=== PATIENT | female | born 2000 | race Caucasian/White ===

== ENCOUNTER 2024-02-29 01:30 | Emergency (ER) | payer SELFPAY ==
[~2024-02-29] VITALS: Ht 167.6 cm; Wt 73.0 kg
[2024-02-29 01:39] VITALS: BP 120/83; PULSE 85; O2SAT 98
[2024-02-29] MEDS ORDERED: ACET-2708 MT (03:14)
[2024-02-29 03:26] VITALS: TEMP 99.4
[2024-02-29] MEDS: ACETAMINOPHEN 325MG TABLET PO ONE (03:26)
[2024-02-29 04:00] VITALS: RESP 18
== END 2024-02-29 04:04 | disposition home or self-care (01) ==
LOC: ER 01:30
DX: R51.9 Headache, unspecified (principal); M25.562 Pain in left knee
CPT/HCPCS: 81025; 73560; 99283; Z7610